=== PATIENT | female | born 1940 | race Caucasian/White ===

== ENCOUNTER 2018-06-09 07:40 | Emergency (ER) | payer OTHER ==
[~2018-06-09] VITALS: Ht 157.5 cm; Wt 92.5 kg
[2018-06-09 07:51] VITALS: Ht 157.5 cm; Wt 92.5 kg
[2018-06-09 10:10] VITALS: BP 115/77
== END 2018-06-09 10:14 | disposition home or self-care (01) ==
LOC: ED 07:40
DX: J10.1 Influenza due to other identified influenza virus with other respiratory manifestations (principal); I10 Essential (primary) hypertension; E78.00 Pure hypercholesterolemia, unspecified; Z90.710 Acquired absence of both cervix and uterus
CPT/HCPCS: 87804; J1885; Q0092; Q0162